=== PATIENT | female | born 2000 | race Caucasian/White ===

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

== ENCOUNTER 2021-02-14 18:37 | Emergency (ER) | payer OTHER, SELFPAY ==
--- NOTE | 2021-02-14 20:33 | EDM.PDOC ---
ED HPI GENERAL MEDICAL PROBLEM - General Chief Complaint: PIZZA COOK Problem Stated Complaint: VAGINAL BLEEDING Time Seen by Provider: 02/14/21 19:26 Source of Information: Reports: Patient History Limitations: Reports: No Limitations - History of Present Illness INITIAL COMMENTS - FREE TEXT/NARRATIVE: Presents reporting vaginal bleeding. The patient states that she had her menses 2 weeks ago. She is sexually active not on control. Now this morning, she started bleeding heavily vaginally. She does state that by this evening the bleeding has slowed down quite a bit. She states that she had a Mirena removed 2 months ago which had been in place since age 15. She took a Plan B pill on February 10. She denies pelvic pain, vaginal itch or discharge, dysuria, fever. She is otherwise healthy without chronic medical problems. A home is test prior to her visit was negative. Lower Abdomen Pain Score (Numeric/FACES): 3 - Related Data Allergies Allergy/AdvReac Type Severity Reaction Status Date / Time No Known Allergies Allergy Verified 02/14/21 18:54 Home Meds: Home Meds LORazepam [Ativan] 0.5 mg PO ASDIRECTED 02/14/21 [History] Past Medical History - Past Health History Medical/Surgical History: Denies Medical/Surgical History Gastrointestinal History: Reports: Inflammatory Bowel Disease Psychiatric History: Reports: Anxiety - Infectious Disease History Infectious Disease History: Reports: Influenza Social & Family History - Family History Family Medical History: No Pertinent Family History - Tobacco Use Tobacco Use Status *Q: Current Every Day Tobacco User Years of Tobacco use: 9 Packs/Tins Daily: 0.5 - Caffeine Use Caffeine Use: Reports: Coffee, Energy Drinks, Soda, Tea - Recreational Drug Use Recreational Drug Use: Yes Recreational Drug Type: Reports: Marijuana/Hashish ED ROS GENERAL - Review of Systems Review Of Systems: Comprehensive ROS is negative, except as noted in HPI. ED EXAM - Physical Exam Exam: See Below Exam Limited By: No Limitations General Appearance: Alert, No Apparent Distress Ears: Normal External Exam Nose: Normal Inspection Throat/Mouth: Normal Inspection Head: Atraumatic, Normocephalic Neck: Normal Inspection Respiratory/Chest: No Respiratory Distress, Lungs Clear, Normal Breath Sounds Cardiovascular: Normal Peripheral Pulses, Regular Rate, Rhythm, No Murmur GI/Abdominal Exam: Normal Bowel Sounds, Soft, Non-Tender, No Distention Neurological: Alert, Oriented Psychiatric: Normal Affect, Normal Mood Skin Exam: Warm, Dry, Intact, Normal Color Lymphatic: No Adenopathy Course - Vital Signs Text/Narrative:: Nursing went to check on the patient and she had absconded. Last Recorded V/S: Last Vital Signs Temp 36.6 C 02/14/21 18:53 Pulse 107 H 02/14/21 18:53 Resp 18 02/14/21 18:53 BP 127/95 H 02/14/21 18:53 Pulse Ox 100 02/14/21 18:53 - Orders/Labs/Meds Labs: Laboratory Tests 02/14/21 02/14/21 02/14/21 Range/Units 20:04 20:04 20:13 WBC 8.30 (4.0-11.0) K/uL RBC 4.28 L (4.30-5.90) M/uL Hgb 13.5 (12.0-16.0) g/dL Hct 38.3 (36.0-46.0) % MCV 89.5 (80.0-98.0) fL MCH 31.5 (27.0-32.0) pg MCHC 35.2 (31.0-37.0) g/dL RDW Std Deviation 40.8 (28.0-62.0) fl RDW Coeff of Ruperto 13 (11.0-15.0) % Plt Count 281 (150-400) K/uL MPV 9.60 (7.40-12.00) fL Neut % (Auto) 61.2 (48.0-80.0) % Lymph % (Auto) 30.8 (16.0-40.0) % [place] % (Auto) 5.7 (0.0-15.0) % Eos % (Auto) 1.8 (0.0-7.0) % Baso % (Auto) 0.5 (0.0-1.5) % Neut # (Auto) 5.1 (1.4-5.7) K/uL Lymph # (Auto) 2.6 H (0.6-2.4) K/uL [place] # (Auto) 0.5 (0.0-0.8) K/uL Eos # (Auto) 0.2 (0.0-0.7) K/uL Baso # (Auto) 0.0 (0.0-0.1) K/uL Nucleated RBC % 0.0 /100WBC Nucleated RBCs # 0 K/uL Urine Color YELLOW Urine Appearance CLEAR Urine pH 7.0 (5.0-8.0) Ur Specific [place] 1.020 (1.001-1.035) Urine Protein NEGATIVE (NEGATIVE) mg/dL Urine Glucose (UA) NEGATIVE (NEGATIVE) mg/dL Urine Ketones NEGATIVE (NEGATIVE) mg/dL Urine Occult Blood TRACE-INTACT H (NEGATIVE) Urine Nitrite NEGATIVE (NEGATIVE) Urine Bilirubin NEGATIVE (NEGATIVE) Urine Urobilinogen 0.2 (<2.0) EU/dL Ur Leukocyte Esterase NEGATIVE (NEGATIVE) Urine RBC 0-2 (0-2/HPF) Urine WBC 0-1 (0-5/HPF) Ur Epithelial Cells RARE (NONE-FEW) Urine Bacteria FEW (NEGATIVE) Urine HCG, Qual NEGATIVE (NEGATIVE) Departure - Departure Time of Disposition: 20:34 Disposition: Eloped 07 Condition: Good Clinical Impression: Vaginal bleeding - Discharge Information Referrals: Ivette Castorena NP [Primary Care Provider] - Sepsis Event Note (ED) - Evaluation Sepsis Screening Result: No Definite Risk - Focused Exam Vital Signs: Vital Signs Temp Pulse Resp BP Pulse Ox 02/14/21 18:53 36.6 C 107 H 18 127/95 H 100
== END 2021-02-14 20:37 | disposition left against medical advice (07) ==
LOC: MW.ED 18:37
DX: N93.9 Abnormal uterine and vaginal bleeding, unspecified (principal); Z72.0 Tobacco use
CPT/HCPCS: 36415; 81001; 81025; 85025; 99284

== ENCOUNTER 2022-04-05 11:53 | Emergency (ER) | payer OTHER ==
[2022-04-05] MEDS ORDERED: Sodium Chloride 0.9% 1,000 ML IV ONE (12:06)
[2022-04-05] MEDS ORDERED: Ketorolac 30 MG/ML SDV IVPUSH ONE (12:26)
[2022-04-05 12:52] LABS: CORONAVIRUS COVID-19 NAA POSITIVE (NEGATIVE); INFLUENZA A NAA NEGATIVE (NEGATIVE); INFLUENZA B NAA NEGATIVE (NEGATIVE)
[2022-04-05 13:05] LABS: CARBON DIOXIDE,CO2 22.8 mmol/L (21.0-32.0); POTASSIUM,K 3.3 mmol/L (3.5-5.1)
== END 2022-04-05 14:13 | disposition home or self-care (01) ==
LOC: MW.ED 11:53
DX: U07.1 COVID-19 (principal)
CPT/HCPCS: 0240U; 36415; 71045; 80053; 84443; 84484; 85025; 93005; 96361; 96374; 99285; J1885; J7030